=== PATIENT | male | born 2000 | race African-American/Black ===

== ENCOUNTER 2021-08-07 19:32 | Emergency (ER) | payer BC ==
[~2021-08-07] VITALS: Ht 165.1 cm; Wt 54.4 kg
[2021-08-07 21:00] VITALS: BP 127/67
== END 2021-08-07 21:11 | disposition home or self-care (01) ==
LOC: ER 19:32
DX: G44.209 Tension-type headache, unspecified, not intractable (principal); Z20.822 Contact with and (suspected) exposure to COVID-19; F12.90 Cannabis use, unspecified, uncomplicated